=== PATIENT | female | born 1965 | race Caucasian/White ===

== ENCOUNTER 2020-11-12 15:44 | Emergency (ER) | payer MEDICAID ==
[2020-11-12] MEDS ORDERED: CHERRY SYRUP 10 ML UDC PO ONE (16:24)
[2020-11-12] MEDS ORDERED: DEXAMETHASONE 10 MG/ML VIAL PO STA (16:24)
--- NOTE | 2020-11-12 16:25 | ED Physician Documentation ---
History of Present Illness - Stated complaint Stated Complaint: LT ARM NUMB,HARD STOMACH - Chief complaint Chief Complaint: Neuro - History obtained from History obtained from: Patient - History of Present Illness Timing: How many weeks ago (3) - Additonal information Additional information: 55-year-old female reports that over the past month she has had an intermittent numbness to the left hand and arm. She has some pain in her neck associated with that as well. She denies any loss of strength. In addition of this she has had a sensation of some firmness to her upper abdomen abdomen. She finds that this is present when she stands up and she did find that she had a small mass that protruded from just above her umbilicus that is now resolved. She is not having a lot of pain associated with this and when she lays flat on her back everything disappears. She states that she has been evaluated in the emergency department in [place] 5 days ago she was treated for otitis media. She also states that she has had surgery on her throat at [facility] in [place] last month and she states this was for a cyst on the right side. Review of Systems Constitutional: denies: Fever Eyes: denies: Decreased vision Ears: reports: Ear pain Nose: denies: Rhinorrhea / runny nose, Congestion Throat: denies: Sore throat Cardiac: denies: Chest pain / pressure, Palpitations, Pedal edema, Calf pain Respiratory: denies: Dyspnea, Cough, Wheezing GI: denies: Abdominal Pain, Nausea, Vomiting, Constipation, Diarrhea : denies: Dysuria, Frequency Skin: denies: Rash Musculoskeletal: reports: Neck pain, Extremity pain. denies: Back pain Neurologic: reports: Numbness, Headache (resolved after treatment for OM). denies: Generalized weakness, Focal weakness, Head injury, LOC PD PAST MEDICAL HISTORY - Present Medications Home Medications: Ambulatory Orders Medication Instructions Recorded Confirmed Esomeprazole Magnesium [Nexium] 40 mg PO DAILY #30 cap 11/12/20 predniSONE [Deltasone] 10 mg PO [id number] #42 tab 11/12/20 - Allergies Allergies/Adverse Reactions: Allergies Allergy/AdvReac Type Severity Reaction Status Date / Time No Known Drug Allergies Allergy Verified 11/12/20 15:52 PD ED PE NORMAL - Vitals Vital signs reviewed: Yes (normal ) - General General: Alert and oriented X 3, No acute distress, Well developed/nourished - HEENT HEENT: Atraumatic, PERRL, EOMI, Ears normal, Moist mucous membranes, Other (Pain to palpation along the left side of the neck over the C2 to see 6 area.) - Neck Neck: Supple, no meningeal sign, No bony TTP - Cardiac Cardiac: RRR, No murmur - Respiratory Respiratory: No respiratory distress, Clear bilaterally - Abdomen Abdomen: Normal bowel sounds, Soft, Non tender, Non distended, No organomegaly, Other (With the patient standing the upper epigastric muscles are firm there is no specific protrusion. There is no mass palpable. When she is laying supine abdomen appears normal. 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.) - Neuro Neuro: Alert and oriented X 3, home health assistant 2-12 intact, No motor deficit, No sensory deficit, Normal speech Eye Opening: Spontaneous Motor: Obeys Commands Verbal: Oriented GCS Score: 15 - Psych Psych: Normal mood, Normal affect Results - Vitals Vitals: Vital Signs - 24 hr 11/12/20 11/12/20 11/12/20 15:49 19:03 19:35 Temperature 36.7 C 36.5 C Heart Rate 86 68 78 Respiratory 16 16 20 Rate Blood Pressure 127/61 123/73 136/79 H O2 Saturation 97 100 100 11/12/20 19:45 Temperature 36.5 C Heart Rate 78 Respiratory 20 Rate Blood Pressure 136/79 H O2 Saturation 100 Oxygen O2 Source Room air - Labs Labs: Laboratory Tests 11/12/20 11/12/20 11/12/20 16:31 16:31 16:31 WBC 5.6 RBC 4.53 Hgb 14.8 Hct 42.8 MCV 94.5 MCH 32.7 H MCHC 34.6 RDW 13.1 Plt Count 275 MPV 10.2 Neut # (Auto) 3.1 Lymph # (Auto) 1.8 [place] # (Auto) 0.5 Eos # (Auto) 0.1 Baso # (Auto) 0.1 Absolute Nucleated RBC 0.00 Nucleated RBC % 0.0 Sodium 139 Potassium 3.7 Chloride 104 Carbon Dioxide 25 Anion Gap 10.0 BUN 12 Creatinine 0.7 Estimated GFR (MDRD) 87 L Glucose 119 H Calcium 9.7 Total Bilirubin 1.1 H AST 17 ALT 12 Alkaline Phosphatase 107 Troponin I High Sens 5.0 Total Protein 7.6 Albumin 4.4 Globulin 3.2 Albumin/Globulin Ratio 1.4 Lipase 28 Urine Color Urine Clarity Urine pH Ur Specific [place] Urine Protein Urine Glucose (UA) Urine Ketones Urine Occult Blood Urine Nitrite Urine Bilirubin Urine Urobilinogen Ur Leukocyte Esterase Ur Microscopic Review Urine Culture Comments 11/12/20 17:06 WBC RBC Hgb Hct MCV MCH MCHC RDW Plt Count MPV Neut # (Auto) Lymph # (Auto) [place] # (Auto) Eos # (Auto) Baso # (Auto) Absolute Nucleated RBC Nucleated RBC % Sodium Potassium Chloride Carbon Dioxide Anion Gap BUN Creatinine Estimated GFR (MDRD) Glucose Calcium Total Bilirubin AST ALT Alkaline Phosphatase Troponin I High Sens Total Protein Albumin Globulin Albumin/Globulin Ratio Lipase Urine Color YELLOW Urine Clarity CLEAR Urine pH 6.5 Ur Specific [place] 1.010 Urine Protein NEGATIVE Urine Glucose (UA) NEGATIVE Urine Ketones NEGATIVE Urine Occult Blood NEGATIVE Urine Nitrite NEGATIVE Urine Bilirubin NEGATIVE Urine Urobilinogen 0.2 (NORMAL) Ur Leukocyte Esterase NEGATIVE Ur Microscopic Review NOT INDICATED Urine Culture Comments NOT INDICATED - Rads (name of study) CT ab pel Radiology: Prelim report reviewed (Impression: Mild gastric wall thickening raising possibility of infectious or inflammatory gastritis. Recommend clinical correlation. If clinically warranted, upper endoscopy follow-up could be performed.), EMP read indepedently, See rad report PD MEDICAL DECISION MAKING - ED course Complexity details: reviewed results (plas), re-evaluated patient, considered differential, d/w patient ED course: 55-year-old female who comes to the emergency department with a chief complaint of a firm upper abdomen that protrudes when she stands up and disappears when she lays down was concerning for a ventral hernia. A CT scan done demonstrates a thickening of the gastric wall and this is a potential explanation for the patient's symptoms as well. She was treated by Dr. Reyes with a PPI. The other complaint the patient had was numbness to the left arm with tingling and this is been present for more than a month. She has normal strength in the arm she has some pain in her neck. We did do a troponin on her work-up as well this was negative. She was administered dexamethasone. I have asked patient to follow-up with her primary to consider MRI of the neck. Departure - Departure Disposition: 01 Home, Self Care Clinical Impression: Cervical radiculopathy, Paresthesia Ventral hernia Qualifiers: Obstruction and gangrene presence: without obstruction or gangrene Qualified Code(s): K43.9 - Ventral hernia without obstruction or gangrene Gastritis Qualifiers: Gastritis type: unspecified gastritis Chronicity: acute Gastritis bleeding: without bleeding Qualified Code(s): K29.00 - Acute gastritis without bleeding Condition: Stable Instructions: ED Hernia Inguinal, ED Cervical Radiculopathy, ED PUD Vs Gastritis, ED Paraesthesias Follow-Up: [facility] [place] [Provider Group] - Within 1 week Prescriptions: predniSONE [Deltasone] 10 mg PO [id number] #42 tab Esomeprazole Magnesium [Nexium] 40 mg PO DAILY #30 cap Comments: Your prescriptions were sent to [facility] in [place]. Use the medications as prescribed. Follow-up with your doctor for further care. Return if you worsen. CT results: IMPRESSION: Mild gastric wall thickening raising possibility of infectious or inflammatory gastritis. Recommend clinical correlation. If clinically warranted, upper endoscopy follow-up could be performed. Discharge Date/Time: 11/12/20 19:47
[2020-11-12 16:35] LABS: BASOPHILS # (AUTO) 0.1 10^3/uL (0.0-0.1); BASOPHILS % (AUTO) 0.9 %; EOSINOPHILS # (AUTO) 0.1 10^3/uL (0.0-0.7); EOSINOPHILS % (AUTO) 1.8 %; HCT - HEMATOCRIT 42.8 % (37.0-47.0); HGB - HEMOGLOBIN 14.8 g/dL (12.0-16.0); LYMPHOCYTES # (AUTO) 1.8 10^3/uL (1.5-3.5); LYMPHOCYTES % (AUTO) 32.1 %; MEAN CORPUSCULAR HEMOGLOBIN 32.7 pg (27.0-31.0); MEAN CORPUSCULAR HGB CONC 34.6 g/dL (32.0-36.0); MEAN CORPUSCULAR VOLUME 94.5 fL (81.0-99.0); MEAN PLATELET VOLUME 10.2 fL (7.9-10.8); MONOCYTES # (AUTO) 0.5 10^3/uL (0.0-1.0); MONOCYTES % (AUTO) 8.6 %; NEUTROPHILS # (AUTO) 3.1 10^3/uL (1.5-6.6); NEUTROPHILS % (AUTO) 56.2 %; PLT - PLATELET COUNT 275 10^3/uL (130-450); RED BLOOD COUNT 4.53 10^6/uL (4.20-5.40); RED CELL DISTRIBUTION WIDTH 13.1 % (12.0-15.0); WHITE BLOOD COUNT 5.6 x10^3/uL (4.8-10.8)
[2020-11-12 16:48] LABS: ALBUMIN 4.4 g/dL (3.2-5.5); ALBUMIN/GLOBULIN RATIO 1.4 (1.0-2.2); BILIRUBIN,TOTAL 1.1 mg/dL (0.2-1.0); CALCIUM 9.7 mg/dL (8.5-10.3); CREATININE 0.7 mg/dL (0.4-1.0); POTASSIUM 3.7 mmol/L (3.5-5.0); TOTAL PROTEIN 7.6 g/dL (6.7-8.2)
[2020-11-12 18:16] LABS: BILIRUBIN,URINE NEGATIVE (NEGATIVE); GLUCOSE, URINE (UA) NEGATIVE (NEGATIVE); KETONES,URINE (UA) NEGATIVE (NEGATIVE); LEUKOCYTE ESTERASE, URINE NEGATIVE (NEGATIVE); NITRITE,URINE NEGATIVE (NEGATIVE); OCCULT BLOOD,URINE NEGATIVE (NEGATIVE); PH,URINE 6.5 PH (5.0-7.5); PROTEIN,URINE NEGATIVE (NEGATIVE); UROBILINOGEN,URINE 0.2 (NORMAL) E.U./dL (NORMAL)
[2020-11-12 18:18] LABS: CLARITY,URINE CLEAR (CLEAR)
[2020-11-12] MEDS ORDERED: IOPAMIDOL-300 50 ML VIAL ONE (18:22)
[2020-11-12] MEDS ORDERED: IOPAMIDOL-300 50 ML VIAL PO ONE (18:48)
--- NOTE | 2020-11-12 18:59 | CT Report ---
PROCEDURE: Abdomen/Pelvis W INDICATIONS: epigastric mass CONTRAST: IV CONTRAST: Isovue 300 ml: 100 PO CONTRAST: *NO PO CONTRAST TECHNIQUE: After the administration of IV contrast, 5 mm thick sections acquired from the diaphragms to the symp hysis. 5 mm thick coronal and sagittal reformats were acquired. For radiation dose reduction, the f ollowing was used: automated exposure control, adjustment of mA and/or kV according to patient size. COMPARISON: None. FINDINGS: ABDOMEN: Lung bases: Normal Heart:Normal. Liver: Hepatic steatosis Gallbladder: Contracted otherwise unremarkable Bile ducts: Normal. Pancreas: Normal. Spleen: Normal. Adrenals: Normal. Kidneys and ureters: Normal. Stomach and duodenum: Questionable distal [id number] thickening for example image 30/3 raising possibility of gastritis although technically limited evaluation secondary to decompressed state. Bowel: No bowel obstruction. Normal appendix Other: No free fluid or air. Abdominal nodes: Normal. Aorta: Normal in size. IVC: Normal. Ventral wall: Normal. PELVIS: Bladder: Normal. Pelvic nodes: Normal. Inguinal: No hernia. Bones: No vertebral body compression fracture. No suspicious bone lesion. Additional chronic and incidental findings as above. IMPRESSION: Mild gastric wall thickening raising possibility of infectious or inflammatory gastritis. Recommend c linical correlation. If clinically warranted, upper endoscopy follow-up could be performed. Reviewed by: Jaime Louis MD on 11/12/2020 6:58 PM PDT Approved by: Jaime Louis MD on 11/12/2020 6:58 PM PDT Station ID: [id number]
--- NOTE | 2020-11-12 19:35 | ED Physician Documentation ---
ED Addendum - Addendum Addendum: 11/12/20 19:33 Patient was signed out to me by Dr. Tejeda awaiting results of her CT scan abdomen pelvis. She had been diagnosed with a left-sided cervical radiculopathy. Had been given steroids. Her CT scan shows a mild gastritis. We will place on a PPI for this. Patient has no focal neurological deficits other than tingling and paresthesias to the left upper extremity. This encompasses the entire arm. Is not confined to a single nerve root on my examination. She states is been coming and going for the past month. Her NIH stroke scale is otherwise normal. No evidence of stroke. Using the arm freely and without difficulty. Has good sensation over the arm but she says it feels like [id number]. The patient is well-appearing, nontoxic. Afebrile. Patient counseled regarding signs and symptoms for which I believe and urgent re-evaluation would be necessary. Patient with good understanding of and agreement to plan and is comfortable going home at this time This document was made in part using voice recognition software. While efforts are made to proofread this document, sound alike and grammatical errors may occur. Departure - Departure Disposition: 01 Home, Self Care Clinical Impression: Cervical radiculopathy, Paresthesia Ventral hernia Qualifiers: Obstruction and gangrene presence: without obstruction or gangrene Qualified Code(s): K43.9 - Ventral hernia without obstruction or gangrene Gastritis Qualifiers: Gastritis type: unspecified gastritis Chronicity: acute Gastritis bleeding: without bleeding Qualified Code(s): K29.00 - Acute gastritis without bleeding Condition: Stable Instructions: ED Hernia Inguinal, ED Cervical Radiculopathy, ED PUD Vs Gastritis, ED Paraesthesias Follow-Up: [facility] [place] [Provider Group] - Within 1 week Prescriptions: predniSONE [Deltasone] 10 mg PO [id number] #42 tab Esomeprazole Magnesium [Nexium] 40 mg PO DAILY #30 cap Comments: Your prescriptions were sent to [facility] in [place]. Use the medications as prescribed. Follow-up with your doctor for further care. Return if you worsen. CT results: IMPRESSION: Mild gastric wall thickening raising possibility of infectious or inflammatory gastritis. Recommend clinical correlation. If clinically warranted, upper endoscopy follow-up could be performed. NIHSS - Time Time: 19:30 - Level of Consciousness Level of consciousness: (0) Alert, Keenly responsive LOC Questions: (0) Answers both Q's correct LOC Commands: (0) Performs both correctly - Gaze Best Gaze: (0) Normal - Visual Visual: (0) No loss - Facial Palsy Facial Palsy: (0) Normal, symmetrical movement - Motor Arms (both separate) Motor Arm (right): (0) No drift Motor Arm (left): (0) No drift - Motor Legs (both separate) Motor Leg (right): (0) No drift Motor Leg (left): (0) No drift - Limb Ataxia Limb Ataxia: (0) Absent - Sensory Sensory: (0) Normal - Best Language Best Language: (0) No aphasia - Dysarthria Dysarthria: (0) Normal - Extinction and Inattention (formally neg Extinction and inattention: (0) No abnormality - Total Score/Results Total Score/Result: 0
[2020-11-12 19:36] VITALS: BP 136/79
== END 2020-11-12 19:47 | disposition home or self-care (01) ==
LOC: ED 15:44
DX: M54.12 Radiculopathy, cervical region (principal); R20.2 Paresthesia of skin; K43.9 Ventral hernia without obstruction or gangrene; K29.00 Acute gastritis without bleeding
CPT/HCPCS: 36415; 74177; 80053; 81003; 83690; 84484; 85025; 99284; A9270; Q9967; 81001; 87086

== ENCOUNTER 2021-02-16 15:33 | Outpatient (CLI) | payer MEDICAID | END 2021-02-16 15:34 | disposition critical access hospital (66) | LOC: EMS 15:33 | DX: R10.9 Unspecified abdominal pain (principal) | CPT/HCPCS: A0425; A0427; A0999 ==

== ENCOUNTER 2021-02-16 15:48 | Emergency (ER) | payer MEDICAID ==
[2021-02-16] MEDS ORDERED: MAG HYDROX/AL HYDROX/SIMETH 30 ML UDC PO STA (16:17)
[2021-02-16] MEDS ORDERED: PANTOPRAZOLE 40 MG VIAL IVP STA (16:17)
--- NOTE | 2021-02-16 16:17 | ED Physician Documentation ---
History of Present Illness - Stated complaint Stated Complaint: ABD PX - Chief complaint Chief Complaint: Abd Pain - Additonal information Additional information: 55-year-old female presents the emergency department for evaluation of acute on set epigastric pain with radiation into her throat. Some nausea no vomiting. Pain began about 1 hour prior to arrival. She had similar pain in October and was seen in this emergency department. Subsequent CT imaging was concerning for possible gastritis. Patient was prescribed a PPI but has not filled it. She reports she was not aware that she needed to fill a prescription. She denies melena or hematochezia. No night sweats or weight loss. She is in the process of establishing with a primary care provider in [place]. Review of Systems Constitutional: denies: Fever, Chills Eyes: reports: Reviewed and negative Ears: reports: Reviewed and negative Nose: reports: Reviewed and negative Throat: reports: Reviewed and negative Cardiac: reports: Reviewed and negative Respiratory: reports: Reviewed and negative GI: reports: Abdominal Pain, Nausea. denies: Vomiting, Constipation, Hematemesis, Bloody / black stool : reports: Reviewed and negative Skin: reports: Reviewed and negative PD PAST MEDICAL HISTORY - Present Medications Home Medications: Ambulatory Orders Medication Instructions Recorded Confirmed Esomeprazole Magnesium [Nexium] 40 mg PO DAILY #30 cap 11/12/20 predniSONE [Deltasone] 10 mg PO [id number] #42 tab 11/12/20 Pantoprazole Sodium [Protonix] 40 mg PO DAILY #30 tab 02/16/21 Sucralfate [Carafate] 1 gm PO ACHS #60 tablet 02/16/21 - Allergies Allergies/Adverse Reactions: Allergies Allergy/AdvReac Type Severity Reaction Status Date / Time No Known Drug Allergies Allergy Verified 02/16/21 16:00 - Social History Does the pt smoke?: Yes Smoking Status: Current every day smoker PD ED PE NORMAL - General General: Alert and oriented X 3, No acute distress - HEENT HEENT: PERRL - Neck Neck: Supple, no meningeal sign - Respiratory Respiratory: Clear bilaterally - Abdomen Abdomen: Normal bowel sounds, Soft. No: Non tender (Mild epigastric pain without guarding or rebound. Negative McBurney's negative Morales's. No swelling. No palpable hernia) - Back Back: No CVA TTP, No spinal TTP - Derm Derm: Normal color, Warm and dry, No rash - Extremities Extremities: No deformity - Neuro Neuro: Alert and oriented X 3 Eye Opening: Spontaneous Motor: Obeys Commands Verbal: Oriented GCS Score: 15 - Psych Psych: Normal mood, Normal affect Results - Vitals Vitals: Vital Signs - 24 hr 02/16/21 02/16/21 15:56 19:07 Temperature 36.6 C 36.9 C Heart Rate 78 65 Respiratory 18 18 Rate Blood Pressure 158/91 H 146/83 H O2 Saturation 98 98 Oxygen O2 Source Room air - Labs Labs: Laboratory Tests 02/16/21 02/16/21 02/16/21 16:26 16:32 16:32 WBC 6.0 RBC 4.35 Hgb 14.4 Hct 41.5 MCV 95.4 MCH 33.1 H MCHC 34.7 RDW 13.0 Plt Count 278 MPV 10.0 Neut # (Auto) 3.5 Lymph # (Auto) 2.1 [place] # (Auto) 0.4 Eos # (Auto) 0.0 Baso # (Auto) 0.1 Absolute Nucleated RBC 0.00 Nucleated RBC % 0.0 Sodium 136 Potassium 3.7 Chloride 101 Carbon Dioxide 24 Anion Gap 11.0 BUN 11 Creatinine 0.7 Estimated GFR (MDRD) 87 L Glucose 101 H Calcium 9.4 Total Bilirubin 0.4 AST 17 ALT 11 Alkaline Phosphatase 66 Total Protein 7.6 Albumin 4.4 Globulin 3.2 Albumin/Globulin Ratio 1.4 Lipase 25 Urine Color YELLOW Urine Clarity CLEAR Urine pH 6.0 Ur Specific [place] 1.015 Urine Protein NEGATIVE Urine Glucose (UA) NEGATIVE Urine Ketones NEGATIVE Urine Occult Blood NEGATIVE Urine Nitrite NEGATIVE Urine Bilirubin NEGATIVE Urine Urobilinogen 0.2 (NORMAL) Ur Leukocyte Esterase NEGATIVE Ur Microscopic Review NOT INDICATED Urine Culture Comments NOT INDICATED - Rads (name of study) CT abd Radiology: Final report received (Hypoattenuating area within the gastric fundus which may reflect an ulcer.) PD MEDICAL DECISION MAKING - ED course Complexity details: reviewed results, re-evaluated patient, d/w patient ED course: 55-year-old female presents emergency department for evaluation of epigastric pain with radiation into her throat. No fevers or vomiting. Had similar presentation in October of this year which time a CT scan suggested stomach inflammation/gastritis. It is unclear if the patient filled the prescription for the omeprazole. She denies any melena or hematochezia. On presentation she appears remarkably well. Only minimal tenderness was elicited in the epigastrium. Screening labs are without acute abnormalities. No significant anemia. However CT was again performed and it does show suspicion of hypoattenuating lesion within the fundus of the stomach concerning for ulcer development. Patient was given Maalox as well as Protonix here in the ER with good resolve of the pain. She will be discharged with prescription for Protonix and Carafate. Advised she needs close follow-up with her primary care doctor as at this time an EGD is warranted. Departure - Departure Disposition: Home, Self Care Clinical Impression: PUD (peptic ulcer disease) Condition: Stable Record reviewed to determine appropriate education?: Yes Instructions: ED PUD Vs Gastritis Follow-Up: Clemente Mota MD [Primary Care Provider] - Prescriptions: Sucralfate [Carafate] 1 gm PO ACHS #60 tablet Pantoprazole Sodium [Protonix] 40 mg PO DAILY #30 tab Comments: Jaimie you were seen in the ER today for pain in your upper abdomen. Your screening labs are all essentially normal The CT of your abdomen suggest that you are developing an ulcer within your stomach. In the long-term it is going to be important that you stop smoking. In the short-term I have prescribed some Protonix which is a medication to help reduce the amount of acid your stomach makes as well as Carafate that you are to take at nighttime. These have been sent to the [facility] in [place]. Is important that you follow-up with your primary care provider. You should be referred for an endoscopy or EGD of your stomach to determine the source of the ulcer as well as the cause. If at any point you have worsening pain, fevers or develop black or bloody stools you are to return immediately to the ER.
[2021-02-16 16:37] LABS: BASOPHILS # (AUTO) 0.1 10^3/uL (0.0-0.1); BASOPHILS % (AUTO) 0.8 %; EOSINOPHILS % (AUTO) 0.7 %; HCT - HEMATOCRIT 41.5 % (37.0-47.0); HGB - HEMOGLOBIN 14.4 g/dL (12.0-16.0); LYMPHOCYTES # (AUTO) 2.1 10^3/uL (1.5-3.5); LYMPHOCYTES % (AUTO) 35.2 %; MEAN CORPUSCULAR HEMOGLOBIN 33.1 pg (27.0-31.0); MEAN CORPUSCULAR HGB CONC 34.7 g/dL (32.0-36.0); MEAN CORPUSCULAR VOLUME 95.4 fL (81.0-99.0); MONOCYTES # (AUTO) 0.4 10^3/uL (0.0-1.0); NEUTROPHILS # (AUTO) 3.5 10^3/uL (1.5-6.6); NEUTROPHILS % (AUTO) 57.1 %; PLT - PLATELET COUNT 278 10^3/uL (130-450); RED BLOOD COUNT 4.35 10^6/uL (4.20-5.40)
[2021-02-16 16:52] LABS: ALBUMIN 4.4 g/dL (3.2-5.5); ALBUMIN/GLOBULIN RATIO 1.4 (1.0-2.2); BILIRUBIN,TOTAL 0.4 mg/dL (0.2-1.0); CALCIUM 9.4 mg/dL (8.5-10.3); CREATININE 0.7 mg/dL (0.4-1.0); POTASSIUM 3.7 mmol/L (3.5-5.0); TOTAL PROTEIN 7.6 g/dL (6.7-8.2)
[2021-02-16] MEDS ORDERED: IOVERSOL 320 100 ML VIAL IVP ONE ×2 (16:52→18:39)
[2021-02-16 16:57] LABS: BILIRUBIN,URINE NEGATIVE (NEGATIVE); GLUCOSE, URINE (UA) NEGATIVE (NEGATIVE); KETONES,URINE (UA) NEGATIVE (NEGATIVE); LEUKOCYTE ESTERASE, URINE NEGATIVE (NEGATIVE); NITRITE,URINE NEGATIVE (NEGATIVE); OCCULT BLOOD,URINE NEGATIVE (NEGATIVE); PROTEIN,URINE NEGATIVE (NEGATIVE); UROBILINOGEN,URINE 0.2 (NORMAL) E.U./dL (NORMAL)
[2021-02-16 17:00] LABS: CLARITY,URINE CLEAR (CLEAR)
--- NOTE | 2021-02-16 18:51 | CT Report ---
PROCEDURE: Abdomen/Pelvis W INDICATIONS: epigastric pain CONTRAST: IV CONTRAST: Optiray 320 ml: 100 PO CONTRAST: *NO PO CONTRAST TECHNIQUE: After the administration of intravenous contrast, 5 mm thick sections acquired from the diaphragms to the symphysis. 5 mm thick coronal and sagittal reformats were acquired. For radiation dose reducti on, the following was used: automated exposure control, adjustment of mA and/or kV according to mare ent size. COMPARISON: November 12, 2020 FINDINGS: Inferior chest: No focal consolidation, pleural effusion, or pneumothorax. No cardiomegaly or perica rdial effusion. Gallbladder: The gallbladder is distended with a smooth thin wall. Biliary tree: No intra-or extrahepatic biliary ductal dilatation. Liver: Normal size and contour. A 1 cm hypoattenuating lesion is again seen adjacent to the falciform ligament, which may represent represent a hemangioma. Spleen: Normal enhancement, size and morphology is seen. Pancreas: No contour deforming mass or inflammatory change. Adrenals: Normal size without masses. Kidneys/ureters: Normal size and morphology. No solid masses or hydronephrosis. Subcentimeter cortica l hypoattenuating lesions are seen in the right lower pole (i.e. series 3, image 35), which may refle ct cysts. Vasculature: No evidence of aneurysm or other significant vascular pathology. Lymphatic system: No pathologic enlargement by size criteria. GI/mesentery: 1 cm hypoattenuating area in the gastric fundus (series 3, image 15), which may reflect an ulcer. No evidence of intestinal obstruction. Normal appearance of the appendix. Peritoneum/Retroperitoneum: No free intraperitoneal gas or large collection. Urinary bladder: The urinary bladder is distended with a smooth thin wall. Pelvic organs: No significant abnormality. Bones/soft tissues: No significant abnormality. IMPRESSION: 1.Hypoattenuating area within the gastric fundus, which may reflect an ulcer. Gastroenterology consul tation may be helpful for further evaluation. Reviewed by: Kirby Paetl MD on 02/16/2021 6:50 PM [facility] Approved by: Kirby Patel MD on 02/16/2021 6:50 PM PST Station ID: [id number]
[2021-02-16 19:08] VITALS: BP 146/83
== END 2021-02-16 19:35 | disposition home or self-care (01) ==
LOC: EDBD → EDUNIT# → ED 15:48
DX: K27.9 Peptic ulcer, site unspecified, unspecified as acute or chronic, without hemorrhage or perforation (principal); F17.200 Nicotine dependence, unspecified, uncomplicated
CPT/HCPCS: 36415; 74177; 80053; 81003; 83690; 85025; 96374; 99283; 99284; A9270; Q9967; 81001; 87086

== ENCOUNTER 2021-04-29 15:10 | Emergency (ER) | payer MEDICAID ==
[2021-04-29 15:29] LABS: BASOPHILS # (AUTO) 0.1 10^3/uL (0.0-0.1); BASOPHILS % (AUTO) 0.9 %; EOSINOPHILS # (AUTO) 0.1 10^3/uL (0.0-0.7); EOSINOPHILS % (AUTO) 1.4 %; HCT - HEMATOCRIT 42.7 % (37.0-47.0); HGB - HEMOGLOBIN 14.3 g/dL (12.0-16.0); LYMPHOCYTES # (AUTO) 2.1 10^3/uL (1.5-3.5); LYMPHOCYTES % (AUTO) 31.4 %; MEAN CORPUSCULAR HEMOGLOBIN 31.8 pg (27.0-31.0); MEAN CORPUSCULAR HGB CONC 33.5 g/dL (32.0-36.0); MEAN CORPUSCULAR VOLUME 95.1 fL (81.0-99.0); MEAN PLATELET VOLUME 9.6 fL (7.9-10.8); MONOCYTES # (AUTO) 0.4 10^3/uL (0.0-1.0); MONOCYTES % (AUTO) 6.2 %; NEUTROPHILS % (AUTO) 59.8 %; PLT - PLATELET COUNT 385 10^3/uL (130-450); RED BLOOD COUNT 4.49 10^6/uL (4.20-5.40); RED CELL DISTRIBUTION WIDTH 13.2 % (12.0-15.0); WHITE BLOOD COUNT 6.6 x10^3/uL (4.8-10.8)
[2021-04-29 15:42] LABS: ALBUMIN 4.4 g/dL (3.2-5.5); ALBUMIN/GLOBULIN RATIO 1.1 (1.0-2.2); BILIRUBIN,TOTAL 0.4 mg/dL (0.2-1.0); CALCIUM 9.8 mg/dL (8.5-10.3); CREATININE 0.7 mg/dL (0.4-1.0); POTASSIUM 3.9 mmol/L (3.5-5.0); TOTAL PROTEIN 8.4 g/dL (6.7-8.2)
[2021-04-29] MEDS ORDERED: HYDROmorphone 1 MG/ML CARPUJECT IVP STA (15:49)
[2021-04-29] MEDS ORDERED: SODIUM CHLORIDE 0.9% 1,000 ML IV STA (15:49)
--- NOTE | 2021-04-29 15:52 | ED Physician Documentation ---
History of Present Illness - Stated complaint Stated Complaint: FEMALE , LT ABD PAIN - Chief complaint Chief Complaint: Abd Pain - Additonal information Additional information: 56-year-old female presents emergency department for evaluation of reported severe left lower quadrant abdominal pain that began yesterday. She reports that she feels like there is a bubble that wants to pop. She was having rectal bleeding yesterday though none today. No history of pain in this area previously. Denies any fevers. Previous to the rectal bleeding no diarrhea or constipation. Reported normal bowel movements. Seen in this emergency department late January for abdominal pain. CT scan at that time suggested a gastritis. Patient subsequently had an endoscopy that she reports was negative. Patient is quite anxious and hyperverbal. She is concerned that there could be lint or bugs in her bellybutton. She also has a mild follicular rash on both of her buttocks that she is concerned could be shingles. Review of Systems Constitutional: denies: Fever, Chills Eyes: reports: Reviewed and negative Nose: reports: Reviewed and negative Throat: reports: Reviewed and negative Cardiac: reports: Reviewed and negative Respiratory: reports: Reviewed and negative GI: reports: Abdominal Pain, Bloody / black stool. denies: Nausea, Vomiting : denies: Dysuria, Frequency, Hesitancy Skin: denies: Rash, Lesions Musculoskeletal: reports: Reviewed and negative Neurologic: reports: Reviewed and negative PD PAST MEDICAL HISTORY - Present Medications Home Medications: Ambulatory Orders Medication Instructions Recorded Confirmed Esomeprazole Magnesium [Nexium] 40 mg PO DAILY #30 cap 11/12/20 predniSONE [Deltasone] 10 mg PO [id number] #42 tab 11/12/20 Pantoprazole Sodium [Protonix] 40 mg PO DAILY #30 tab 02/16/21 Sucralfate [Carafate] 1 gm PO ACHS #60 tablet 02/16/21 - Allergies Allergies/Adverse Reactions: Allergies Allergy/AdvReac Type Severity Reaction Status Date / Time No Known Drug Allergies Allergy Verified 04/29/21 15:15 - Social History Does the pt smoke?: Yes Smoking Status: Current every day smoker PD ED PE EXPANDED - General General: Alert, Anxious - Cardiac Cardiac: Regular Rate, Radial strong equal, Pedal strong equal, Cap refill < 2 sec. No: Murmur Present - Respiratory Respiratory: Clear to ausultation corine. No: Distress, Labored - Abdomen Abdomen: Normal Bowel sounds, Tender to palpation (Tender to LLQ, no guarding or rebound) - Rectal Rectal: Normal Tone, Child Care Group Leader present, Other (Chaperoned rectal exam reveals nontender rectum. Brown stool in vault. No fissures or external hemorrhoids noted.) - Back Back: Normal exam. No: Vertebral tenderness, Soft tissue tenderness - Derm Derm: Normal color, Warm and dry, Other (bilateral faint follicular exanthem on buttocks) - Extremities Extremities: Normal. No: Deformity, Tenderness Results - Vitals Vitals: Vital Signs - 24 hr 04/29/21 04/29/21 15:11 16:06 Temperature 36.7 C Heart Rate 88 Respiratory 18 20 Rate Blood Pressure 131/81 H O2 Saturation 99 Oxygen O2 Source Room air - Labs Labs: Laboratory Tests 04/29/21 04/29/21 04/29/21 15:24 15:24 15:24 WBC 6.6 RBC 4.49 Hgb 14.3 Hct 42.7 MCV 95.1 MCH 31.8 H MCHC 33.5 RDW 13.2 Plt Count 385 MPV 9.6 Neut # (Auto) 4.0 Lymph # (Auto) 2.1 Gulf # (Auto) 0.4 Eos # (Auto) 0.1 Baso # (Auto) 0.1 Absolute Nucleated RBC 0.00 Nucleated RBC % 0.0 Sodium 138 Potassium 3.9 Chloride 102 Carbon Dioxide 27 Anion Gap 9.0 BUN 11 Creatinine 0.7 Estimated GFR (MDRD) 86 L Glucose 130 H Calcium 9.8 Total Bilirubin 0.4 AST 16 ALT 12 Alkaline Phosphatase 90 Total Protein 8.4 H Albumin 4.4 Globulin 4.0 Albumin/Globulin Ratio 1.1 Lipase 29 Urine Color YELLOW Urine Clarity CLEAR Urine pH 6.0 Ur Specific [place] 1.025 Urine Protein NEGATIVE Urine Glucose (UA) NEGATIVE Urine Ketones NEGATIVE Urine Occult Blood NEGATIVE Urine Nitrite NEGATIVE Urine Bilirubin NEGATIVE Urine Urobilinogen 0.2 (NORMAL) Ur Leukocyte Esterase NEGATIVE Ur Microscopic Review NOT INDICATED Urine Culture Comments NOT INDICATED - Rads (name of study) CT abd Radiology: Final report received (No acute process. Normal appendix.) PD MEDICAL DECISION MAKING - ED course Complexity details: reviewed results, re-evaluated patient, d/w patient ED course: 56-year-old female presents emergency department for evaluation of acute left lower quadrant abdominal pain and reported rectal bleeding yesterday. Reports finding large amount of blood in the toilet and on toilet paper after wiping. No fevers, no vomiting. On exam she had mild tenderness in the left lower quadrant of her abdomen but no guarding or rebound. Her screening labs are essentially unremarkable. I did do a digital rectal exam at the bedside that revealed brown stool in the vault. CT of the abdomen did not reveal any obvious pathology or worrisome findings. 9 I discussed with the patient that etiologies for rectal bleeding with the exception of diverticulitis could also include polyps further up in her colon that are not identified or a hemorrhoid. I did advise patient that she should follow-up with primary care provider and follow-up closely with her PCP. She should be referred for colonoscopy. Advised Tylenol ibuprofen for discomfort. Emergent return precautions otherwise discussed. Departure - Departure Disposition: 01 Home, Self Care Clinical Impression: LLQ abdominal pain Condition: Stable Record reviewed to determine appropriate education?: Yes Comments: Jaimie rutledge were seen in the emergency department today for pain in the left lower part of your abdomen as well as reported rectal bleeding yesterday. Today your rectal exam did not have any obvious rectal bleeding. There was brown stool in your rectum. Your screening labs were all essentially normal as well. The CT of your abdomen was also normal and does not give an obvious cause for rectal bleeding. It is possible that there is a polyp further up in your colon that could have been bleeding but we do not see these on CAT scans. It is also possible that you could have had a hemorrhoid internally that bled. In order to further diagnose this problem your primary care doctor will need to make a referral to a general surgeon or brazing machine tender for a colonoscopy. In general I recommend that you take Tylenol or ibuprofen for discomfort.If you find that you have fevers, severe rectal bleeding, uncontrolled vomiting then please return immediately to the ER for second evaluation.
[2021-04-29] MEDS ORDERED: IOVERSOL 320 100 ML VIAL IVP ONE ×2 (16:08→16:19)
[2021-04-29 16:12] LABS: BILIRUBIN,URINE NEGATIVE (NEGATIVE); GLUCOSE, URINE (UA) NEGATIVE (NEGATIVE); KETONES,URINE (UA) NEGATIVE (NEGATIVE); LEUKOCYTE ESTERASE, URINE NEGATIVE (NEGATIVE); NITRITE,URINE NEGATIVE (NEGATIVE); OCCULT BLOOD,URINE NEGATIVE (NEGATIVE); PROTEIN,URINE NEGATIVE (NEGATIVE); UROBILINOGEN,URINE 0.2 (NORMAL) E.U./dL (NORMAL)
[2021-04-29 16:17] LABS: CLARITY,URINE CLEAR (CLEAR)
--- NOTE | 2021-04-29 16:27 | CT Report ---
PROCEDURE: Abdomen/Pelvis W INDICATIONS: LLQ painl rectal bleeding CONTRAST: IV CONTRAST: Optiray 320 ml: 100 PO CONTRAST: *NO PO CONTRAST TECHNIQUE: After the administration of IV contrast, 5 mm thick sections acquired from the diaphragms to the symp hysis. 5 mm thick coronal and sagittal reformats were acquired. For radiation dose reduction, the f ollowing was used: automated exposure control, adjustment of mA and/or kV according to patient size. COMPARISON: CT dated 02/16/2021 FINDINGS: Image quality: Excellent. ABDOMEN: Lung bases: Lung bases are clear. Heart size is normal. Solid organs: Liver and spleen are normal in size and enhancement. Gallbladder is within normal dean its Biliary system is non dilated. Pancreas enhances normally. No adrenal nodules. Kidneys demons trate normal size and enhancement, without hydronephrosis. Peritoneum and bowel: Bowel loops demonstrate normal wall thickness and caliber. Normal appendix. N o free fluid or air. Nodes and vessels: No retroperitoneal or mesenteric adenopathy by size criteria. Aorta and inferior vena cava are normal in size. Miscellaneous: No ventral hernias. PELVIS: Genitourinary: Bladder wall thickness is normal. Miscellaneous: No inguinal hernias or adenopathy. Bones: No suspicious bony lesions. No vertebral body compression fractures. IMPRESSION: 1. No acute process. 2. Normal appendix. Reviewed by: Elicia Britt MD on 04/29/2021 4:26 PM PST Approved by: Elicia Britt MD on 04/29/2021 4:26 PM PST Station ID: [id number]
[2021-04-29 17:05] VITALS: BP 124/82
== END 2021-04-29 17:05 | disposition home or self-care (01) ==
LOC: ED 15:10
DX: R10.32 Left lower quadrant pain (principal); F17.200 Nicotine dependence, unspecified, uncomplicated
CPT/HCPCS: 36415; 74177; 80053; 81003; 83690; 85025; 96374; 99282; 99284; J1170; Q9967; 81001; 87086